=== PATIENT | female | born 1990 | race Caucasian/White ===

== ENCOUNTER 2021-12-10 22:56 | Inpatient (IN) ==
[2021-12-11] MEDS ORDERED: METHYLERGONOVINE 0.2 MG/1 ML AMP IM PRN (00:13)
[2021-12-11] MEDS ORDERED: MEPERIDINE 50 MG/1 ML VIAL IV PRN (00:13)
[2021-12-11] MEDS ORDERED: BUTORPHANOL 2 MG/ML VIAL IV PRN (00:13)
[2021-12-11] MEDS ORDERED: OXYTOCIN/LR 20 UNIT/1,000 ML BAG IV ONE ×3 (00:13→12:47)
[2021-12-11] MEDS ORDERED: ONDANSETRON 4 MG/2 ML VIAL IV PRN ×2 (00:13→12:47)
[2021-12-11] MEDS ORDERED: BUTORPHANOL 1 MG/ML VIAL IV PRN (00:13)
[2021-12-11] MEDS ORDERED: CARBOPROST TROMETHAMINE 250 MCG/ML AMP IM PRN (00:13)
[2021-12-11] MEDS ORDERED: miSOPROStoL 200 MCG TABLET RECTAL PRN (00:13)
[2021-12-11] MEDS ORDERED: LACTATED RINGERS 500 ML IV PRN (00:13)
[2021-12-11] MEDS ORDERED: TRANEXAMIC ACID 1,000 MG in SODIUM CHLORIDE 0.9% 100 ML IV PRN (00:13)
[2021-12-11] MEDS ORDERED: LACTATED RINGERS 250 ML IV ONE (00:13)
[2021-12-11] MEDS ORDERED: OXYTOCIN/LR 20 UNIT/1,000 ML BAG IV SCH (00:30)
[2021-12-11] MEDS ORDERED: LACTATED RINGERS 1,000 ML IV SCH (00:30)
[2021-12-11 00:31] LABS: Basophils % 0.2 % (0.0-0.8); Eosinophils # 0.1 10*3/uL (0.0-0.87); Eosinophils % 0.7 % (0.00-10.9); Hematocrit 35.3 VOL% (35.7-47.0); Immature Granulocytes % 0.7 %; Immature Granulocytes Absolute 0.09 #; Lymphocytes # 2.2 10*3/uL (1.4-4.0); Lymphocytes % 17.2 % (21.3-54.2); Mean Corpuscular Volume 86.1 FL (87-102); Mean Platelet Volume 11.5 FL (9.6-12.0); Monocytes % 8.3 % (1.7-12.7); Neutrophils % 72.9 % (38.7-73.9); Platelet Count 216 T/CUMM (130-400); Red Cell Distribution Width 13.2 % (9.3-17.3); White Blood Count 12.5 T/CUMM (4-12)
[2021-12-11] MEDS ORDERED: CITRIC ACID/SODIUM CITRATE 30 ML UDCUP PO ONE (03:41)
[2021-12-11] MEDS ORDERED: ePHEDrine 50 MG/ML VIAL IV PRN (03:41)
[2021-12-11] MEDS ORDERED: FAMOTIDINE 20 MG/2 ML VIAL IV ONE (03:44)
[2021-12-11] MEDS ORDERED: CLINDAMYCIN INJ 900 MG/50 ML PREMIX IV ONE (07:20)
[2021-12-11] MEDS ORDERED: TERBUTALINE 1 MG/1 ML VIAL ONE (07:25)
[2021-12-11] MEDS ORDERED: TERBUTALINE 1 MG/1 ML VIAL SUBCUT PRN (07:27)
[2021-12-11] MEDS ORDERED: ONDANSETRON 4 MG/2 ML VIAL ONE (09:06)
[2021-12-11] MEDS ORDERED: METOCLOPRAMIDE 10 MG/2 ML VIAL ONE (09:06)
[2021-12-11] MEDS ORDERED: BUPIVACAINE SPINAL 0.75% 2 ML AMP SPINAL ONE (09:08)
[2021-12-11] MEDS ORDERED: buprenorphine HCL 0.3 MG/ML VIAL ONE (09:08)
[2021-12-11] MEDS ORDERED: MIDAZOLAM 2 MG/2 ML VIAL ONE (09:19)
[2021-12-11] MEDS ORDERED: LACTATED RINGERS 1,000 ML IV ONE (09:36)
[2021-12-11] MEDS ORDERED: PHENYLEPHRINE 1 MG/10 ML SYRINGE IV ONE (09:37)
[2021-12-11 09:58] LABS: Cord Arterial Blood HCO3 19.4 MMOL/L
[2021-12-11 09:59] LABS: RBC,Urine 1 /HPF (0-4); Squamous Epithelial Cell,Urine Occasional /HPF (0-10)
[2021-12-11 10:00] LABS: Bilirubin,Urine Negative (Negative); Blood, Urine Negative (Negative); Glucose,Urine (UA) Negative (Negative); Ketones,Urine Negative (Negative); Nitrite,Urine Negative (Negative); Protein,Urine Negative (Negative); Urine Appearance Clear (Clear); Urine Color Yellow (Yellow); Urine Specific Gravity 1.015 (1.001-1.035); Urine Urobilinogen 0.2 eU/dL (<2.0)
[2021-12-11 10:02] LABS: Cord Venous Blood HCO3 21.1 MMOL/L; Cord Venous Blood PCO2 67.4 MMHG; Cord Venous Blood PO2 < 17
[2021-12-11] MEDS ORDERED: KETOROLAC 30 MG/1 ML VIAL ONE (10:09)
[2021-12-11] MEDS ORDERED: MEASLES/MUMPS/RUBELLA VACCINE 0.5 ML VIAL SUBCUT ONE (12:47)
[2021-12-11] MEDS ORDERED: HYDROCORTISONE 2.5% RECTAL CREAM 30 GM TUBE TOP PRN (12:47)
[2021-12-11] MEDS ORDERED: RHO(D) IMMUNE GLOBULIN 300 MCG SYRINGE IM ONE (12:47)
[2021-12-11] MEDS ORDERED: DIPH/TET/ACEL PERT BOOSTER VACCINE 0.5 ML VIAL IM ONE (12:47)
[2021-12-11] MEDS ORDERED: BENZOCAINE 20%/MENTHOL 0.5% SPRAY 56 GM CAN TOP PRN (12:47)
[2021-12-11] MEDS ORDERED: WITCH HAZEL PADS 100/JAR TOP PRN (12:47)
[2021-12-11] MEDS ORDERED: BISACODYL 10 MG SUPP RECTAL PRN (12:47)
[2021-12-11] MEDS ORDERED: ACETAMINOPHEN 325 MG TABLET PO PRN (12:47)
[2021-12-11] MEDS ORDERED: oxyCODONE/ACETAMINOPHEN 5-325 MG TABLET PO PRN ×2 (12:47)
[2021-12-11] MEDS ORDERED: LANOLIN 50% CREAM 0.3 OZ TUBE TOP PRN (12:47)
[2021-12-11] MEDS ORDERED: IBUPROFEN 800 MG TABLET PO PRN (12:47)
[2021-12-11] MEDS: ACETAMINOPHEN 500 MG TABLET PO SCH ×2 (13:53→20:09)
[2021-12-11] MEDS: KETOROLAC 30 MG/1 ML VIAL IV SCH ×2 (16:26→22:06)
[2021-12-11] MEDS: CLINDAMYCIN INJ 900 MG/50 ML PREMIX IV SCH (16:52)
[2021-12-11] MEDS ORDERED: ONDANSETRON 4 MG/2 ML VIAL IV ONE (17:45)
[2021-12-11] MEDS: DOCUSATE SODIUM 100 MG CAPSULE PO SCH (20:09)
[2021-12-12] MEDS: CLINDAMYCIN INJ 900 MG/50 ML PREMIX IV SCH (00:48)
[2021-12-12] MEDS: KETOROLAC 30 MG/1 ML VIAL IV SCH (03:50)
[2021-12-12] MEDS ORDERED: MAGNESIUM HYDROXIDE SUSP 30 ML UDCUP PO PRN (04:30)
[2021-12-12] MEDS: ACETAMINOPHEN 500 MG TABLET PO SCH ×2 (04:30→06:38)
[2021-12-12 05:14] LABS: Basophils % 0.2 % (0.0-0.8); Eosinophils # 0.1 10*3/uL (0.0-0.87); Eosinophils % 0.6 % (0.00-10.9); Hematocrit 32.5 VOL% (35.7-47.0); Hemoglobin 10.6 GM/DL (12.0-16.0); Immature Granulocytes % 0.5 %; Immature Granulocytes Absolute 0.07 #; Lymphocytes % 13.8 % (21.3-54.2); Mean Corpuscular HGB Conc 32.6 GM/DL (32-36); Mean Platelet Volume 11.6 FL (9.6-12.0); Monocytes # 0.8 10*3/uL (0.11-0.8); Monocytes % 5.4 % (1.7-12.7); Neutrophils % 79.5 % (38.7-73.9); Platelet Count 182 T/CUMM (130-400); Red Blood Count 3.65 MC/CUMM (3.8-5.5); Red Cell Distribution Width 13.4 % (9.3-17.3); White Blood Count 14.5 T/CUMM (4-12)
[2021-12-12] MEDS: ACETAMINOPHEN/CODEINE 300-30 MG TABLET PO PRN ×4 (06:46→21:03)
[2021-12-12] MEDS: MULTIVITAMIN (PRENATAL) TABLET PO SCH (09:51)
[2021-12-12] MEDS: DOCUSATE SODIUM 100 MG CAPSULE PO SCH ×2 (09:52→21:03)
[2021-12-13] MEDS: ACETAMINOPHEN/CODEINE 300-30 MG TABLET PO PRN ×2 (05:52→11:20)
[2021-12-13 07:34] VITALS: BP 112/57
[2021-12-13] MEDS: DOCUSATE SODIUM 100 MG CAPSULE PO SCH (09:44)
[2021-12-13] MEDS: MULTIVITAMIN (PRENATAL) TABLET PO SCH (09:44)
== END 2021-12-13 13:21 | disposition home or self-care (01) | DRG 788 ==
LOC: N.ADMINP 22:56 → N.OB 12-11 12:34
PROVIDERS: ADMIT Specialist; ATTEND Specialist
PROC: LDCSECT (ICD-10-PCS; 2021-12-11 09:00)